=== PATIENT | male | born 1995 | race Caucasian/White ===

== ENCOUNTER → 2021-09-24 14:00 | Outpatient (BNVA) | payer OTHER, SELFPAY | PROVIDERS: Family Provider Family Medicine; PCP Family Medicine | DX: Z20.822 Contact with and (suspected) exposure to COVID-19 (principal) | CPT/HCPCS: 87635 ==

== ENCOUNTER 2024-03-03 14:40 | Outpatient (CLI) | payer OTHER, SELFPAY | END 2024-03-03 14:41 | disposition home or self-care (01) | LOC: LAB 14:45 | PROVIDERS: Family Provider Family Medicine; PCP Family Medicine; Visit Provider Urology | DX: Z30.2 Encounter for sterilization (principal) | CPT/HCPCS: 89310 ==